=== PATIENT | female | born 1960 | race American Indian/Alaskan Native ===

== ENCOUNTER 2020-09-22 23:47 | Emergency (ER) | payer BC ==
[2020-09-23 00:13] VITALS: BP 164/71
[2020-09-23 00:42] LABS: Basophils # (Auto) 0.1 K/mm3 (0.0-0.1); Basophils % (Auto) 0.7 % (0.0-1.8); Eosinophils # (Auto) 0.2 K/mm3 (0.0-0.4); Hematocrit 36.3 % (30.3-42.9); Hemoglobin 11.9 gm/dl (10.1-14.3); Lymphocytes # (Auto) 2.3 K/mm3 (1.2-5.4); Lymphocytes % (Auto) 20.8 % (13.4-35.0); Mean Corpuscular HGB Conc 33 % (30-34); Mean Corpuscular Volume 87 fl (79-97); Monocytes # (Auto) 0.7 K/mm3 (0.0-0.8); Monocytes % (Auto) 6.7 % (0.0-7.3); Platelet Count 267 K/mm3 (140-440); Red Blood Count 4.16 M/mm3 (3.65-5.03)
[2020-09-23] MEDS ORDERED: SODIUM CHLORIDE 0.9% 1000 ML 1,000 ML IV ONE (00:51)
[2020-09-23] MEDS ORDERED: ONDANSETRON 4 MG/2 ML INJ IV ONE (00:51)
[2020-09-23] MEDS ORDERED: MORPHINE 4 MG/1 ML INJ IV ONE (00:53)
[2020-09-23] MEDS ORDERED: FAMOTIDINE 20 MG/2 ML INJ IV ONE (00:53)
[2020-09-23 01:04] LABS: Albumin 4.4 g/dL (3.9-5); Calcium 9.3 mg/dL (8.4-10.2)
--- NOTE | 2020-09-23 01:08 | Event Note ---
ED Screening Note Date of service: 09/23/20 Time: 01:04 ED Screening Note: Patient is a 60 yo AA female with a h/o chronic osteoarthritis, chronic low back pain and rectal fistulas who presents to the ED with c/o acute onset persistent severe right flank pain that radiates to the RLQ area with nausea, vomiting and rectal bleeding for the last 3 hours. Patient states that she has had multiple episodes of nausea, vomiting and rectal bleeding. Patient states that the RLQ pain got worse has worsened in the last 2 hours. Patient denies dizziness, syncope, fever, vaginal bleeding, cough, chest pain, dyspnea, diarrhea, constipation or vision changes, numbness and tingling of lower extremities bilaterally. Physical exam is positive for Palpable right flank and RLQ tenderness with guarding. This initial assessment/diagnostic orders/clinical plan/treatment(s) is/are subject to change based on patients health status, clinical progression and re- assessment by fellow clinical providers in the ED. Further treatment and workup at subsequent clinical providers discretion. Patient/guardian urged not to elope from the ED as their condition may be serious if not clinically assessed and managed. Initial orders include: CBC, CMP, UA, Lipase, EKG, Troponin, Abdo-Pelvis CT w/contrast, 1 litre NS IV bolus, zofran and morphine
[2020-09-23 03:37] LABS: Bilirubin,Urine NEG (Negative); Blood,Urine SM (Negative); Color,Urine Yellow (Yellow); Mucus,Urine 2+ /HPF; RBC,Urine > 182.0 /HPF (0.0-6.0); Urobilinogen,Urine < 2.0 mg/dL (<2.0)
== END 2020-09-23 03:00 | disposition left against medical advice (07) ==
LOC: ED 23:47
DX: R10.31 Right lower quadrant pain (principal); Z53.21 Procedure and treatment not carried out due to patient leaving prior to being seen by health care provider
CPT/HCPCS: 36415; 80053; 81001; 83690; 84484; 85025